=== PATIENT | female | born 1950 ===

== ENCOUNTER 2020-08-08 21:17 | Emergency (ER) | payer OTHER ==
[~2020-08-08] VITALS: Ht 152.4 cm; Wt 59.0 kg
[2020-08-08] MEDS ORDERED: ATORVASTATIN CA40 MG (21:30)
[2020-08-08] MEDS ORDERED: NASAL MIST126 ML (21:30)
[2020-08-09] MEDS ORDERED: ORPHENADRINE C100 MG PO (03:16)
[2020-08-09] MEDS ORDERED: ZOFRAN4 MG PO (03:19)
== END 2020-08-09 03:51 | disposition home or self-care (01) ==
LOC: ER 21:17 → CPU-OBS 22:41 → ER 22:41
DX: R07.89 Other chest pain (principal); R51 Headache; M54.2 Cervicalgia; F41.8 Other specified anxiety disorders; Z03.818 Encounter for observation for suspected exposure to other biological agents ruled out